=== PATIENT | female | born 1960 | race Hispanic/Latino ===

== ENCOUNTER → 2020-09-17 | Outpatient (CLI) | payer OTHER | END | disposition home or self-care (01) | LOC: RAH 07:42 | PROVIDERS: ATTEND Physical Medicine & Rehabilitation | DX: M25.78 Osteophyte, vertebrae (principal); R29.2 Abnormal reflex; R53.1 Weakness | CPT/HCPCS: 72141 ==

== ENCOUNTER → 2020-11-11 | Outpatient (CLI) | payer OTHER | END | disposition home or self-care (01) | LOC: RAH 10:59 | PROVIDERS: ATTEND Physical Medicine & Rehabilitation | DX: M47.812 Spondylosis without myelopathy or radiculopathy, cervical region (principal); M48.04 Spinal stenosis, thoracic region; M41.84 Other forms of scoliosis, thoracic region | CPT/HCPCS: 72146 ==